=== PATIENT | male | born 1950 | race Caucasian/White ===

== ENCOUNTER 2016-10-23 03:12 | Emergency (ER) | payer OTHER, BC ==
--- NOTE | 2016-10-23 03:32 | PDOC ---
History of Present Illness - General History Source: Patient Exam Limitations: No Limitations - History of Present Illness Initial Comments: 10/23/16 03:40 The patient is a 65 year old male with significant past medical history of hypertension and COPD who presents to the ED with generalized weakness prior to presentation. Patient reports he was walking to the bathroom when he suddenly felt lightheaded. He also has complaints of nausea and diaphoresis. Patient denies SOB, chest pain, jaw pain, shoulder pain, or arm pain. Patient was vomiting in the ER department. The patient denies fever, chills, cough, abdominal pain, and diarrhea. Allergies: NKDA Social History: No alcohol, tobacco, or drug use reported. Past Surgical History: None reported PCP: Dr. Shalini Moss <Sylvie Clark - Last Filed: 10/23/16 04:10> - General History Source: Patient <Beau Corbin - Last Filed: 10/23/16 05:49> - General Stated Complaint: DIZZINESS, CHILLS, LIGHTHEADEDNESS Time Seen by Provider: 10/23/16 03:27 Past History <Sylvie Clark - Last Filed: 10/23/16 04:10> <Beau Corbin - Last Filed: 10/23/16 05:49> - Past Medical History Allergies/Adverse Reactions: Allergies Allergy/AdvReac Type Severity Reaction Status Date / Time No Known Allergies Allergy Verified 10/23/16 03:35 Home Medications: Ambulatory Orders Olmesartan Medoxomil [Benicar (Nf)] 20 mg PO DAILY 10/23/16 Review of Systems - Review of Systems Able to Perform ROS?: Yes Comments:: 10/23/16 03:41 CONSTITUTIONAL: +diaphoresis, generalized weakness Absent: fever, no chills, no fatigue EYES: Absent: visual changes ENT: Absent: ear pain, no sore throat CARDIOVASCULAR: +lightheadedness Absent: chest pain, no palpitations RESPIRATORY: Absent: cough, no SOB GI: +nausea, vomiting Absent: abdominal pain, no constipation, no diarrhea GENITOURINARY: Absent: dysuria, no frequency, no hematuria MUSKULOSKELETAL: Absent: back pain, no arthralgia, no myalgia SKIN: Absent: rash NEURO: Absent: headache <Sylvie Clark - Last Filed: 10/23/16 04:10> *Physical Exam - Vital Signs Last Vital Signs Temp Pulse Resp BP Pulse Ox 98.4 F 62 16 135/81 100 10/23/16 03:36 10/23/16 03:36 10/23/16 03:36 10/23/16 03:36 10/23/16 03:36 - Physical Exam Comments: 10/23/16 03:41 GENERAL: Well-appearing, well-nourished. No apparent distress. HEENT: Normocephalic, atraumatic. PERRL, EOM intact. CARDIOVASCULAR: Normal S1, S2. Regular rate and rhythm. PULMONARY: Clear to auscultation bilaterally. ABDOMEN: Soft, non-distended, non-tender. EXTREMITIES: Normal ROM in all four extremities. No gross deformities. SKIN: Warm, dry. No rash NEUROLOGICAL: No focal neurological deficits. <Sylvie Clark - Last Filed: 10/23/16 04:10> Heart Score/ECG Review - ECG Impressions Comment:: 10/23/16 04:10 NSR @62bpm Anterior infarct, age undetermined Abnormal ECG <Sylvie Clark - Last Filed: 10/23/16 04:10> ED Treatment Course - LABORATORY CBC & Chemistry Diagram: 10/23/16 03:41 10/23/16 03:41 <Sylvie Clark - Last Filed: 10/23/16 04:10> - LABORATORY CBC & Chemistry Diagram: 10/23/16 03:41 10/23/16 03:41 <Beau Corbin - Last Filed: 10/23/16 05:49> Medical Decision Making - Medical Decision Making 10/23/16 05:49 Dr. Corbin: The scribe's documentation has been prepared under my direction and personally reviewed by me in its entirery. I confirm that the note above accurately reflects all work, treatment, procedures, and medical decision making performed by me. <Beau Corbin - Last Filed: 10/23/16 05:49> *DC/Admit/Observation/Transfer - Attestations Scribe Attestion: 10/23/16 03:41 Documentation prepared by Sylvie Clark, acting as medical manager for Beau Corbin MD <Sylvie Clark - Last Filed: 10/23/16 04:10> - Discharge Dispostion Admit: No <Beau Corbin - Last Filed: 10/23/16 05:49> Diagnosis at time of Disposition: Lightheaded - Discharge Dispostion Disposition: HOME Condition at time of disposition: Improved - Referrals Referrals: Shalini Moss MD [Primary Care Provider] - - Patient Instructions Printed Discharge Instructions: DI for Dizziness-Nonvertigo
[2016-10-23] MEDS ORDERED: ONDANSETRON 4 MG/2 ML VIAL IVPUSH STA (03:33)
[2016-10-23] MEDS ORDERED: SODIUM CHLORIDE 1,000 ML IV STA (03:33)
[2016-10-23] MEDS ORDERED: FAMOTIDINE 20 MG/50 ML IVPB 20 MG in PREMIX 50 IVPB ONE (03:35)
[2016-10-23] MEDS ORDERED: FAMOTIDINE 20 MG/50 ML IVPB 50 ML IVPB ONE (03:43)
[2016-10-23 04:12] LABS: BASOPHIL 0.4 % (0-2.0); EOSINOPHIL 1.6 % (0-4.5); MCH 31.4 pg (25.7-33.7); MCHC 33.7 g/dl (32.0-35.9); MEAN CELL VOLUME 93.1 fl (80-96); MEAN PLT VOLUME 8.5 fl (7.5-11.1); NEUTROPHILS 84.6 % (42.8-82.8); PLATELET COUNT 153 K/MM3 (134-434); RDW 13.4 % (11.9-15.9); WHITE BLOOD COUNT 9.2 K/mm3 (4.0-10.0)
[2016-10-23 04:21] VITALS: TEMP 98.4; BMI 26.6
[2016-10-23 04:39] LABS: ALBUMIN 3.6 g/dl (3.4-5.0); ANION GAP 8 (8-16); BILIRUBIN,TOTAL 0.5 mg/dL (0.2-1.0); CALCIUM 8.4 mg/dL (8.5-10.1); CO2 30 mmol/L (21-32); CREATININE 1.2 mg/dL (0.7-1.3); GLUCOSE,RANDOM 122 mg/dL (74-106); MAGNESIUM 1.8 mg/dL (1.8-2.4); SGOT/AST 22 U/L (15-37); SGPT/ALT 31 U/L (12-78); TOT PROT 6.2 g/dl (6.4-8.2)
[2016-10-23 04:41] LABS: INR 1.05 (0.82-1.09); PROTHROMBIN TIME (PATIENT) 11.6 SEC (9.98-11.88)
[2016-10-23 04:42] LABS: ALK PHOS 79 U/L (45-117); TROPONIN I < 0.02 ng/ml (0.00-0.05)
[2016-10-23 06:00] VITALS: BP 122/83; PULSE 72
--- NOTE | 2016-10-23 14:10 | EKG ---
Test Reason : Blood Pressure : / mmHG Vent. Rate : 062 BPM Atrial Rate : 062 BPM P-R Int : 196 ms QRS Dur : 088 ms QT Int : 414 ms P-R-T Axes : 057 046 040 degrees QTc Int : 420 ms NORMAL SINUS RHYTHM ANTERIOR INFARCT , AGE UNDETERMINED ABNORMAL ECG NO PREVIOUS ECGS AVAILABLE Confirmed by JACINTA SANTIAGO MD ([id number]) on 10/23/2016 2:09:44 PM Referred By: Confirmed By:JACINTA SANTIAGO MD
== END 2016-10-23 06:01 | disposition home or self-care (01) ==
LOC: JER 03:12
PROC: 3E033GC Introduction of Other Therapeutic Substance into Peripheral Vein, Percutaneous Approach (ICD-10-PCS; principal; 2016-10-23)
DX: R42 Dizziness and giddiness (principal)
CPT/HCPCS: 36415; 80053; 82550; 83690; 83735; 84484; 85025; 85610; 87804; 93005; 93010; 96365; 96375; 99282-25

== ENCOUNTER 2019-05-25 12:58 | Emergency (ER) | payer OTHER, BC ==
[2019-05-25 13:12] VITALS: BP 138/81; PULSE 83; TEMP 98.5; BMI 26.6
[2019-05-25 13:49] LABS: URINE APPEARANCE CLEAR; URINE BILIRUBIN NEGATIVE (NEGATIVE); URINE COLOR YELLOW; URINE GLUCOSE (UA) NEGATIVE (NEGATIVE); URINE KETONE NEGATIVE (NEGATIVE); URINE LEUK ESTERASE NEGATIVE (NEGATIVE); URINE NITRITE NEGATIVE (NEGATIVE); URINE PROTEIN NEGATIVE (NEGATIVE); URINE UROBILINOGEN 0.2 mg/dL (0.2-1.0)
--- NOTE | 2019-05-25 13:57 | PDOC ---
History of Present Illness - General Chief Complaint: Hematuria Stated Complaint: BLOOD IN URINE/COUGHING Time Seen by Provider: 05/25/19 13:31 History Source: Patient Exam Limitations: No Limitations - History of Present Illness Initial Comments: 05/25/19 13:53 68y M with PMH of HTN, BPH, Hernia presenting to ED with complaints of hematuria. Patient states he went to urinate earlier today and at the end, he saw bright red blood. This is the first time this has ever happened. He went to the bathroom prior to my assessment and stated there was no blood this time. He denies dysuria, burning, testicular pain, instrumentation, recent procedures, n/ v/d, suprapubic pain. He was recently diagnosed with bronchitis and finished his course of antibiotics 1w ago. He has been having coughs which is worse at night when he lies down. Denies fever, chills, history of bladder cancer, sob, chest pain, new back pain. Quit smoking 15y ago. He has a urology appointment coming up this month. PMD: Isa Uro: [place] PMH: see hpi PSH: none Meds: losartan Allergies: nkda Past History - Past Medical History Allergies/Adverse Reactions: Allergies Allergy/AdvReac Type Severity Reaction Status Date / Time No Known Allergies Allergy Verified 05/25/19 13:12 Home Medications: Ambulatory Orders Albuterol Sulfate Inhaler - [Ventolin HFA Inhaler -] 1 - 2 inh PO QID #1 inhaler 05/25/19 Losartan Potassium 50 mg PO DAILY 05/25/19 COPD: No HTN: Yes - Psycho Social/Smoking Cessation Hx Smoking History: Never smoked Have you smoked in the past 12 months: No Information on smoking cessation initiated: No Hx Alcohol Use: No Drug/Substance Use Hx: No Review of Systems - Review of Systems Constitutional: No: Chills, Fever, Weakness HEENTM: No: Symptoms Reported Respiratory: Yes: Cough, Wheezing Cardiac (ROS): No: Symptoms Reported ABD/GI: No: Symptoms Reported : Yes: Hematuria. No: Burning, Dysuria, Discharge, Pain, Urgency Musculoskeletal: No: Symptoms Reported Integumentary: No: Symptoms Reported Neurological: No: Symptoms reported *Physical Exam - Vital Signs Last Vital Signs Temp Pulse Resp BP Pulse Ox 98.5 F 83 18 138/81 100 05/25/19 13:10 05/25/19 13:10 05/25/19 13:10 05/25/19 13:10 05/25/19 13:10 - Physical Exam General Appearance: Yes: Nourished, Appropriately Dressed. No: Apparent Distress HEENT: positive: EOMI, ANNABEL, Normal ENT Inspection Neck: positive: Trachea midline, Supple. negative: Decreased range of motion, Lymphadenopathy (R) Respiratory/Chest: positive: Wheezing. negative: Labored Respiration, Crackles , Rales, Rhonchi, Stridor Cardiovascular: positive: Regular Rhythm, Regular Rate, S1, S2. negative: Edema , JVD, Murmur Vascular Pulses: Carotid (R): 2+, Carotid (L): 2+ Gastrointestinal/Abdominal: positive: Normal Bowel Sounds, Soft. 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, Fully Oriented, Alert, Normal Mood/ Affect, Normal Response, Motor Strength 5/ ED Treatment Course - LABORATORY CBC & Chemistry Diagram: 05/25/19 13:45 05/25/19 13:45 - ADDITIONAL ORDERS Additional order review: Laboratory Results 05/25/19 13:45 Urine Color Yellow Urine Appearance Clear Urine pH 5.0 Ur Specific [place] 1.007 L Urine Protein Negative Urine Glucose (UA) Negative Urine Ketones Negative Urine Blood Negative Urine Nitrite Negative Urine Bilirubin Negative Urine Urobilinogen 0.2 Ur Leukocyte Esterase Negative Medical Decision Making - Medical Decision Making 05/25/19 20:07 68yo M with PMH of HTN, BPH presenting with magdy hematuria. not on AC, no surgeries. vitals wnl ddx includes but not limited to uti, malignancy, dissection, medication use low supicion for dissection given no cp, no sob. sob likley 2/2 bronchitis. labs wnl, no signs of infection ua negative for blood. patient feeling better after duonebs. cxr does not show infiltrate, consolidation or effusions. safe for dc home. given rx for inhaler bc patient states it ran out. educated patient on use of inhaler. has pmd and uro f/u. given return precautions. Discharge - Discharge Information Problems reviewed: Yes Clinical Impression/Diagnosis: Cough Hematuria Qualifiers: Hematuria type: unspecified type Qualified Code(s): R31.9 - Hematuria, unspecified Disposition: HOME - Admission No - Additional Discharge Information Prescriptions: Albuterol Sulfate Inhaler - [Ventolin HFA Inhaler -] 1 - 2 inh PO QID #1 inhaler - Follow up/Referral Referrals: Shalini Moss MD [Primary Care Provider] - - Patient Discharge Instructions Patient Printed Discharge Instructions: DI for Hematuria Additional Instructions: You were seen in the emergency room today for blood in the urine (hematuria). There wasn't any blood seen in this sample and it does not appear to be infected. Please keep you urology appointment and if you can, schedule it sooner. Be sure to let them know that you had blood in the urine. I also recommend that you make an appointment with Dr. Moss regarding your cough. Come back to the emergency room if you notice more blood in the urine, develop abdominal pain, severe flank pain, have difficulty breathing, have chest pain or if any new concerning symptom develops. Thank you - Post Discharge Activity
[2019-05-25 14:02] LABS: BASO % 0.8 % (0-2.0); EOS % 1.9 % (0-4.5); HEMATOCRIT 44.9 % (35.4-49); HEMOGLOBIN 15.3 GM/dL (11.7-16.9); LYMPH % 7.3 % (8-40); MCH 31.6 pg (25.7-33.7); MCHC 34.1 g/dl (32.0-35.9); MEAN CELL VOLUME 92.9 fl (80-96); MEAN PLT VOLUME 8.4 fl (7.5-11.1); MONO % 7.4 % (3.8-10.2); NEUT % 82.6 % (42.8-82.8); PLATELET COUNT 249 K/MM3 (134-434); RBC 4.84 M/mm3 (4.00-5.60); RDW 13.6 % (11.9-15.9); WHITE BLOOD COUNT 8.1 K/mm3 (4.0-10.0)
[2019-05-25 14:31] LABS: ALBUMIN 3.5 g/dl (3.4-5.0); BILIRUBIN,TOTAL 0.6 mg/dL (0.2-1); BLOOD UREA NITROGEN 18.6 mg/dL (7-18); CALCIUM 8.9 mg/dL (8.5-10.1); CREATININE 1.4 mg/dL (0.55-1.3); POTASSIUM 4.3 mmol/L (3.5-5.1); TOT PROT 6.5 g/dl (6.4-8.2)
--- NOTE | 2019-05-25 14:55 | PDOC ---
Attending Attestation - Resident Resident Name: ChelaLynn - ED Attending Attestation I have performed the following: I have examined & evaluated the patient, The case was reviewed & discussed with the resident, I agree w/resident's findings & plan, Exceptions are as noted - HPI HPI: 05/25/19 14:49 68 M with h/o HTN, BPH, inguinal Hernia presenting to ED with cough and hematuria. Pt states that today, he had one episode of bright red blood at the end of his urine stream. He states that this only occurred once, and he has subsequently urinated 2-3 times, all normal. Pt denies any abdominal or flank pain. Denies F/C. Denies dysuria. Pt also reports several weeks of cough. Denies CP/SOB. States that he was being treated for bronchitis, but his cough never cleared up. Denies h/o asthma/COPD. Is former smoker. Denies any orthopnea, denies leg swelling. - Physicial Exam PE: 05/25/19 14:51 "GENERAL: Awake, alert, and fully oriented, in no acute distress. HEAD: No signs of trauma EYES: PERRLA, EOMI, sclera anicteric, conjunctiva clear ENT: Auricles normal inspection, hearing grossly normal, nares patent, oropharynx clear without exudates. Moist mucosa NECK: Nontender, no stepoffs, Normal ROM, supple, no lymphadenopathy, JVD, or masses LUNGS: + mild expiratory wheezes bilaterally HEART: Regular rate and rhythm, normal S1 and S2, no murmurs, rubs or gallops ABDOMEN: Soft, nontender, normoactive bowel sounds. No guarding, no rebound. No masses EXTREMITIES: Normal range of motion, no edema. No clubbing or cyanosis. No cords, erythema, or tenderness NEUROLOGICAL: Cranial nerves II through XII intact. 5/5 strength and sensation in all extremities, Normal speech, normal gait, normal cerebellar function SKIN: Warm, Dry, normal turgor, no rashes or lesions noted. - Medical Decision Making 05/25/19 14:53 68 M with hematuria and cough. Will evaluate for cystitis. Pt with no flank/ abdominal pain to suggest nephrolithiasis. Will check CXR to r/o PNA given cough. Lung exam with mild wheezing, suggesting possible bronchitis vs asthma/ COPD. - Labs - CXR - Nebs
[2019-05-25] MEDS ORDERED: ALBUTEROL SO4 2.5/IPRATROPIUM 0.5 INH SOL 3 ML VIAL.NEB. NEB ONE (15:20)
[2019-05-25] MEDS: ALBUTEROL SO4 2.5/IPRATROPIUM 0.5 INH SOL 3 ML VIAL.NEB. NEB SCH ×3 (15:28→15:46)
== END 2019-05-25 17:02 | disposition home or self-care (01) ==
LOC: JER 12:58
PROC: 3E0F7GC Introduction of Other Therapeutic Substance into Respiratory Tract, Via Natural or Artificial Opening (ICD-10-PCS; principal; 2019-05-25)
DX: R05 Cough (principal); R31.9 Hematuria, unspecified; I10 Essential (primary) hypertension
CPT/HCPCS: 36415; 71046-TC-FY; 80053; 81003; 85025; 87086; 94640; 99282-25

== ENCOUNTER 2021-10-31 04:30 | Day surgery (SDC) | payer OTHER, BC ==
[~2021-10-31 04:30] MED LIST: ACETAMINOPHEN 325 MG TABLET (FP) PO PRN; BSS (NA/CA/MG/K) BALANCED SALT SOLUTION OPHTH SOLN 15 ML BOTTLE OD ONE; EPINEPHrine/PF 1 MG/1 ML (1:1,000) AMPULE SQ ONE; LIDOCAINE 1%/EPI 1:100000 (20 ML MULTI DOSE VIAL) IJ ONE; POVIDONE-IODINE 5% OPHTHALMIC PREP 30 ML SOLUTION OD ONE; TRIAMCINOLONE ACET 40MG/1ML VIAL IJ ONE
[2021-10-31] MEDS ORDERED: TRIAMCINOLONE ACET 40MG/1ML VIAL ONE (07:25)
[2021-10-31] MEDS ORDERED: OFLOXACIN 0.3% OPHTHALMIC SOLUTION 5 ML BOTTLE ONE (09:54)
[2021-10-31] MEDS: OFLOXACIN 0.3% OPHTHALMIC SOLUTION 5 ML BOTTLE OP SCH ×3 (10:00→10:10)
[2021-10-31] MEDS ORDERED: OPTHALMIC ONE (11:36)
[2021-10-31] MEDS ORDERED: LIDOCAINE 3.5% ONE (11:36)
[2021-10-31] MEDS ORDERED: LIDOCAINE HCL 2% JELLY (5 ML/TUBE) TP ONE (11:36)
[2021-10-31] MEDS ORDERED: MIDAZOLAM HCL 2 MG/2 ML SINGLE DOSE VIAL ONE (11:47)
[2021-10-31] MEDS ORDERED: POVIDONE-IODINE 5% OPHTHALMIC PREP 30 ML SOLUTION OD ONE (11:50)
[2021-10-31] MEDS ORDERED: BSS (NA/CA/MG/K) BALANCED SALT SOLUTION OPHTH SOLN 15 ML BOTTLE OD ONE (11:56)
[2021-10-31] MEDS ORDERED: LIDOCAINE 1%/EPI 1:100000 (20 ML MULTI DOSE VIAL) IJ ONE (11:57)
[2021-10-31] MEDS ORDERED: TRIAMCINOLONE ACET 40MG/1ML VIAL IJ ONE (12:17)
[2021-10-31 13:03] VITALS: BP 127/69; PULSE 67; TEMP 97.8
== END 2021-10-31 13:00 | disposition home or self-care (01) ==
LOC: JASU-SURG 04:30
PROVIDERS: ATTEND Ophthalmology
PROC: 08U007Z Supplement of Right Eye with Autologous Tissue Substitute, Open Approach (ICD-10-PCS; principal; 2021-10-31 12:00)
DX: H11.001 Unspecified pterygium of right eye (principal)
CPT/HCPCS: 88304-TC

== ENCOUNTER 2022-06-01 13:42 | Emergency (ER) | payer OTHER, BC ==
[2022-06-01 14:34] VITALS: BP 143/72; PULSE 101; RESP 20; TEMP 98.7; BMI 26.9
[2022-06-01] MEDS ORDERED: guaiFENesin/CODEINE 10 ML UNIT-DOSE CUPS PO ONE (15:59)
[2022-06-01] MEDS ORDERED: ALBUTEROL SO4 HFA INHALER IH ONE ×2 (15:59→19:25)
[2022-06-01] MEDS ORDERED: guaiFENesin/CODEINE 5 ML UNIT-DOSE CUPS PO ONE (19:25)
[2022-06-01 19:57] LABS: BASO % 0.8 % (0-2.0); EOS % 5.1 % (0-4.5); HEMATOCRIT 39.4 % (35.4-49); HEMOGLOBIN 12.7 GM/dL (11.7-16.9); LYMPH % 9.5 % (8-40); MCH 28.3 pg (25.7-33.7); MCHC 32.3 g/dl (32.0-35.9); MEAN CELL VOLUME 87.5 fl (80-96); MEAN PLT VOLUME 8.1 fl (7.5-11.1); MONO % 9.8 % (3.8-10.2); NEUT % 74.8 % (42.8-82.8); PLATELET COUNT 330 10^3/uL (134-434); RBC 4.51 M/mm3 (4.00-5.60); RDW 14.5 % (11.9-15.9); WHITE BLOOD COUNT 6.6 K/mm3 (4.0-10.0)
[2022-06-01 20:24] LABS: CHLORIDE 102 mmol/L (98-107); SODIUM 140 mmol/L (136-145)
[2022-06-01 20:26] LABS: ALBUMIN 3.2 g/dl (3.4-5.0); CALCIUM 8.9 mg/dL (8.5-10.1)
[2022-06-01 20:27] LABS: ANION GAP 8 MMOL/L (8-16); BLOOD UREA NITROGEN 17.1 mg/dL (7-18); CO2 30 mmol/L (21-32); GLUCOSE,RANDOM 85 mg/dL (74-106)
[2022-06-01 20:29] LABS: CREATININE 0.8 mg/dL (0.55-1.3)
[2022-06-01 20:30] LABS: SGOT/AST 26 U/L (15-37); SGPT/ALT 18 U/L (13-61)
[2022-06-01 20:31] LABS: BILIRUBIN,TOTAL 0.5 mg/dL (0.2-1); TOT PROT 6.7 g/dl (6.4-8.2)
[2022-06-01 20:32] LABS: ALK PHOS 71 U/L (45-117)
[2022-06-01 20:34] LABS: N-TERMINAL BNP 78.8 pg/ml (5-125)
== END 2022-06-01 21:29 | disposition home or self-care (01) ==
LOC: JER 13:42
DX: R60.0 Localized edema (principal); R05.1 Acute cough
CPT/HCPCS: 0241U-QW; 36415; 71046-TC-FY; 80053; 83880; 85025; 93005; 93010; 99285-25

== ENCOUNTER 2025-02-15 06:05 | Day surgery (SDC) | payer OTHER, BC ==
[2025-02-11 13:14] VITALS: BMI 26.4
[2025-02-15 07:06] LABS: MCHC 31.7 g/dl (32.3-36.5); MEAN CELL VOLUME 96.1 fl (79.0-92.2); MEAN PLT VOLUME 10.3 fl (9.4-12.4); RDW 13.5 % (12.2-16.6)
[2025-02-15] MEDS ORDERED: BUPIVACAINE HCL/PF 0.25% (2.5MG/ML) 10 ML VIAL ONE ×2 (07:25→08:16)
[2025-02-15 07:29] LABS: CO2 31.0 mmol/L (21-32); GLUCOSE,RANDOM 102.0 mg/dL (74-106)
[2025-02-15 07:32] LABS: CREATININE 1.1 mg/dL (0.55-1.3); SGOT/AST 22.0 U/L (15-37); SGPT/ALT 28.0 U/L (13-61)
[2025-02-15 07:34] LABS: TOT PROT 6.6 g/dl (6.4-8.2)
[2025-02-15 07:35] LABS: ALK PHOS 73.0 U/L (45-117)
[2025-02-15] MEDS ORDERED: MIDAZOLAM HCL 2 MG/2 ML SINGLE DOSE VIAL ONE (07:55)
[2025-02-15] MEDS ORDERED: PROPOFOL 20 ML ONE ×2 (07:55→09:46)
[2025-02-15] MEDS ORDERED: KETAMINE HCL 200 MG/20 ML VIAL ONE (07:55)
[2025-02-15] MEDS ORDERED: LIDOCAINE HCL/PF 2% SDV 5ML VIAL ONE (08:00)
[2025-02-15] MEDS ORDERED: ONDANSETRON 4 MG/2 ML VIAL ONE (08:00)
[2025-02-15] MEDS ORDERED: DEXAMETHASONE SOD PHOSPHATE 4 MG/1 ML VIAL ONE (08:00)
[2025-02-15] MEDS ORDERED: GLYCOPYRROLATE 0.2 MG/1 ML VIAL ONE (08:01)
[2025-02-15] MEDS ORDERED: ACETAMINOPHEN INJECTION 100 ML ONE (08:07)
[2025-02-15] MEDS ORDERED: ONDANSETRON 4 MG/2 ML VIAL IVPUSH PRN (08:10)
[2025-02-15] MEDS ORDERED: LACTATED RINGERS SOLUTION 1,000 ML IV SCH (08:15)
[2025-02-15] MEDS ORDERED: HEPARIN NA (PORCINE) 5,000 UNITS/ML 1ML VIAL ONE (08:16)
[2025-02-15] MEDS: BUPIVACAINE HCL/PF 0.25% (2.5MG/ML) 10 ML VIAL IJ ONE (08:58)
[2025-02-15] MEDS ORDERED: METOPROLOL TARTRATE 5 MG/5 ML VIAL ONE (09:14)
[2025-02-15 14:18] VITALS: BP 163/77; PULSE 54; RESP 20; TEMP 98.1
== END 2025-02-15 13:30 | disposition home or self-care (01) ==
LOC: JASU-SURG 06:05
PROVIDERS: ATTEND Surgery
PROC: 0DQV0ZZ Repair Mesentery, Open Approach (ICD-10-PCS; principal; 2025-02-15 08:00)
DX: K40.90 Unilateral inguinal hernia, without obstruction or gangrene, not specified as recurrent (principal)
CPT/HCPCS: 36415; 80053; 85027; 86850; 86900; 86901; 88304-TC; 94760; C1781